=== PATIENT | male | born 1985 | race Caucasian/White ===

== ENCOUNTER 2016-11-05 15:37 | Inpatient (IN) | payer MEDICAID, OTHER ==
[2016-11-05] MEDS ORDERED: ACETAMINOPHEN TAB 325 MG TAB PO PRN (15:56)
[2016-11-05] MEDS ORDERED: MAGNESIUM HYDROXIDE 2,400 MG/10 ML CUP PO PRN (15:56)
[2016-11-05] MEDS ORDERED: MAG HYDROX/AL HYDROX/SIMETH 30 ML CUP PO PRN (15:56)
[2016-11-05] MEDS ORDERED: ZIPRASIDONE 20 MG VIAL IM PRN (15:56)
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
[2016-11-05] MEDS ORDERED: LORazepam 2 MG/ML SYRINGE IM PRN (18:32)
[2016-11-05] MEDS: IBUPROFEN 600 MG TAB PO PRN (19:25)
[2016-11-05] MEDS: LORazepam 1 MG TAB PO PRN (19:27)
[2016-11-05] MEDS ORDERED: NICOTINE 14MG/24HR PATCH TRANSDERM ONE (19:30)
[2016-11-05 19:56] VITALS: RESP 16
[2016-11-05] MEDS: DIVALPROEX ER 500 MG TAB.ER.24H PO SCH (21:28)
[2016-11-05] MEDS: MELATONIN 1 MG TAB PO SCH (21:28)
[2016-11-06] MEDS: LORazepam 1 MG TAB PO PRN (04:46)
[2016-11-06] MEDS ORDERED: NICOTINE 14MG/24HR PATCH TRANSDERM SCH (09:00)
[2016-11-06] MEDS ORDERED: NALTREXONE HCL 50 MG TAB PO SCH (09:00)
[2016-11-06] MEDS: buPROPion XL 300 MG TAB.ER.24H PO SCH ×2 (09:34→09:36)
[2016-11-06] MEDS ORDERED: buPROPion SR 150 MG TABLET.ER PO STA (10:21)
[2016-11-06] MEDS ORDERED: hydrOXYzine PAMOATE 25 MG CAP PO PRN (11:47)
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
[2016-11-06] MEDS: NICOTINE POLACRILEX 2 MG GUM BUCCAL PRN ×3 (12:20→20:20)
[2016-11-06 15:45] LABS: Anisocytosis Slight; Aty Lym Flag Slight; Basophils # (A) 0.1 k/uL (0-0.2); Basophils % (A) 1 %; CH 34.5; CHCM 31.8; Eosinophils # (A) 0.1 k/uL (0-0.7); Eosinophils % (A) 1 %; HCT 40.2 % (39.0-53.0); HDW 2.68; HGB 12.8 gm/dL (13.0-17.5); Luc # (Auto) 0.42; Luc % (Auto) 5; Lymphocytes # (A) 4.9 k/uL (1.0-4.8); Lymphocytes % (A) 57 %; MCH 34.8 pg (25.0-35.0); MCHC 31.8 g/dL (31.0-37.0); MCV 109.4 fL (80.0-100.0); Macrocytosis Marked; Mean Platelet Volume 7.3; Monocytes # (A) 0.6 k/uL (0-1.0); Monocytes % (A) 6 %; Neutrophils # (A) 2.6 k/uL (1.3-7.7); Neutrophils % (A) 30 %; RBC 3.68 m/uL (4.30-5.90); RDW 16.1 % (11.5-15.5); WBC 8.7 k/uL (3.8-10.6); WBC (Perox) 8.42
[2016-11-06] MEDS: buPROPion SR 150 MG TABLET.ER PO SCH (15:55)
[2016-11-06 16:01] LABS: ALT 265 U/L (21-72); AST 231 U/L (17-59); Alkaline Phosphatase 94 U/L (38-126); Anion Gap 10 mmol/L; Blood Urea Nitrogen 17 mg/dL (9-20); Calcium 9.3 mg/dL (8.4-10.2); Carbon Dioxide 27 mmol/L (22-30); Chloride 101 mmol/L (98-107); Glucose 93 mg/dL (74-99); Non-African American GFR(MDRD) >60 (>60 ml/min/1.73 sqM); Potassium 5.9 mmol/L (3.5-5.1); Sodium 138 mmol/L (137-145); Total Bilirubin 0.7 mg/dL (0.2-1.3); Total Protein 8.4 g/dL (6.3-8.2)
[2016-11-06] MEDS ORDERED: INSULIN REGULAR 100 UNIT/ML VIAL IV ONE (16:18)
[2016-11-06] MEDS ORDERED: DEXTROSE 50%-WATER 50 ML SYRINGE IVP STA (16:19)
[2016-11-06 17:03] LABS: Manual Review Performed
--- NOTE | 2016-11-06 19:47 | P.PN ---
Subjective Principal diagnosis: patient is seen and examined per RN request to evaluate abnormal labs, hyperkalemia patient 31 year old with hisotry of hep C, admitted due to auditory and visual hallucinations patient seen today, denies any focal weakness or palpitations, denies any nausea or vomiting. denies any chest pain or trouble breathing continues to request IV opioids to control his right hip pain. however, he is walking around with no limitations, per RN he is not even limping when he thinks that no one is watching him. Objective - Vital Signs Vital signs: Vital Signs Temp 98.2 F 11/06/16 02:35 Pulse 63 11/06/16 04:50 Resp 16 11/06/16 02:35 BP 106/57 11/06/16 04:50 Pulse Ox 98 11/05/16 17:16 - Exam General : not in acute distress, conversant Chest: CTAB, no wheezes, or rhonci, normal breathing effort Cardiac, nl S1 S2 regular no murmurs Abd soft lax, no tenderness, BS positive Ext no leg edema or tenderness to palpation of calf muscles bilaterally Psych alert oriented to place and person and time ;labs reviewed - Labs CBC & Chem 7: 11/06/16 15:23 11/06/16 18:06 Labs: Abnormal Lab Results - Last 24 Hours (Table) 11/06/16 11/06/16 Range/Units 15:23 15:23 RBC 3.68 L (4.30-5.90) m/uL Hgb 12.8 L (13.0-17.5) gm/dL MCV 109.4 H (80.0-100.0) fL RDW 16.1 H (11.5-15.5) % Lymphocytes # 4.9 H (1.0-4.8) k/uL Potassium 5.9 H (3.5-5.1) mmol/L AST 231 H (17-59) U/L ALT 265 H (21-72) U/L Total Protein 8.4 H (6.3-8.2) g/dL Assessment and Plan (1) Hyperkalemia Narrative/Plan: EKG unremarkable repeat levels if continues to increase then will consider transfer to medical floor for further management and monitoring if upon repeat levels normalizes, then continue to monitor on the psych luque Status: Acute (2) Hallucinations, visual Narrative/Plan: Management per psych Status: Acute (3) Auditory hallucinations Narrative/Plan: Management per psych Status: Acute (4) Hep C w/o coma, chronic Narrative/Plan: Check AFP pending elevated transaminitis check PT / INR need OP follow up with PCP and ID Status: Chronic (5) Right hip pain Narrative/Plan: avoid tylenol products due to elevated liver enzymes Consider Motrin or Toradol Status: Chronic (6) Nicotine dependence Narrative/Plan: Counseled to quit smoking Extremities therapy offered Status: Chronic (7) DVT prophylaxis Narrative/Plan: Low risk and ambulatory Status: Acute
[2016-11-06] MEDS: DIVALPROEX ER 500 MG TAB.ER.24H PO SCH (20:19)
[2016-11-06] MEDS ORDERED: OLANZapine 2.5 MG TAB PO SCH (21:00)
[2016-11-07] MEDS: MELATONIN 1 MG TAB PO SCH (01:22)
[2016-11-07] MEDS: NICOTINE POLACRILEX 2 MG GUM BUCCAL PRN ×3 (06:53→14:06)
[2016-11-07] MEDS: IBUPROFEN 600 MG TAB PO PRN (07:22)
[2016-11-07 07:32] VITALS: BP 117/61; PULSE 56; TEMP 97.7
[2016-11-07] MEDS: buPROPion SR 150 MG TABLET.ER PO SCH ×2 (08:15→14:06)
[2016-11-07 11:01] LABS: Anion Gap 8 mmol/L; Blood Urea Nitrogen 19 mg/dL (9-20); Calcium 9.3 mg/dL (8.4-10.2); Carbon Dioxide 28 mmol/L (22-30); Chloride 105 mmol/L (98-107); Glucose 92 mg/dL (74-99); INR 1.2 (<1.2); Non-African American GFR(MDRD) >60 (>60 ml/min/1.73 sqM); Partial Thromboplastin Time 27.6 sec (22.0-30.0); Potassium 4.8 mmol/L (3.5-5.1); Prothrombin Time 12.3 sec (9.0-12.0); Sodium 141 mmol/L (137-145)
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
[2016-11-07 14:04] LABS: Vitamin B12 670 pg/mL (239-931)
[2016-11-07 16:17] LABS: Iron Saturation 60.75 (15.00-50.00)
== END 2016-11-07 13:59 | disposition home or self-care (01) | DRG 885 ==
LOC: 3MHU 16:44
PROVIDERS: ADMIT Psychiatry & Neurology Psychiatry; ATTEND Psychiatry & Neurology Psychiatry
DX: F31.9 Bipolar disorder, unspecified (principal); E87.5 Hyperkalemia; R44.0 Auditory hallucinations; B18.2 Chronic viral hepatitis C; R44.1 Visual hallucinations; R74.0 Nonspecific elevation of levels of transaminase and lactic acid dehydrogenase [LDH]; T50.906A Underdosing of unspecified drugs, medicaments and biological substances, initial encounter; R51 Headache; F12.29 Cannabis dependence with unspecified cannabis-induced disorder; F41.9 Anxiety disorder, unspecified; F19.90 Other psychoactive substance use, unspecified, uncomplicated; F17.200 Nicotine dependence, unspecified, uncomplicated; M25.551 Pain in right hip; Z79.891 Long term (current) use of opiate analgesic; Z79.899 Other long term (current) drug therapy; Z71.6 Tobacco abuse counseling; Z71.41 Alcohol abuse counseling and surveillance of alcoholic; Z71.51 Drug abuse counseling and surveillance of drug abuser; Z91.19 Patient's noncompliance with other medical treatment and regimen; Z91.14 Patient's other noncompliance with medication regimen; Z82.49 Family history of ischemic heart disease and other diseases of the circulatory system; Z90.81 Acquired absence of spleen; Z87.81 Personal history of (healed) traumatic fracture; Z63.79 Other stressful life events affecting family and household; Z62.890 Parent-child estrangement NEC; Z87.828 Personal history of other (healed) physical injury and trauma; Z91.138 Patient's unintentional underdosing of medication regimen for other reason; Z72.89 Other problems related to lifestyle
CPT/HCPCS: 80048; 80053; 80164; 82105; 82607; 82728; 82747; 83540; 83550; 84132; 85025; 85610; 85730; 93005

== ENCOUNTER 2016-11-12 08:38 | Inpatient (IN) | payer MEDICAID ==
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
[2016-11-12] MEDS ORDERED: MAG HYDROX/AL HYDROX/SIMETH 30 ML CUP PO PRN (11:55)
[2016-11-12] MEDS ORDERED: MAGNESIUM HYDROXIDE 2,400 MG/10 ML CUP PO PRN (11:55)
[2016-11-12] MEDS ORDERED: ACETAMINOPHEN TAB 325 MG TAB PO PRN (11:55)
[2016-11-12] MEDS ORDERED: hydrOXYzine PAMOATE 25 MG CAP PO PRN (12:06)
[2016-11-12] MEDS: NICOTINE 14MG/24HR PATCH TRANSDERM SCH (13:15)
[2016-11-12 13:36] VITALS: BMI 24.5
[2016-11-12] MEDS ORDERED: buPROPion SR 150 MG TABLET.ER PO SCH (15:00)
[2016-11-12 15:02] LABS: Appearance,Urine Clear (Clear); Bilirubin,Urine Negative (Negative); Glucose,Urine (UA) Negative (Negative); Ketones,Urine Negative (Negative); Leukocyte Esterase,Urine Negative (Negative); Nitrite,Urine Negative (Negative); PH, Urine 5.5 (5.0-8.0); Protein,Urine Negative (Negative); Specific Gravity,Urine 1.013 (1.001-1.035); UA Billing (MACRO vs. MICRO) CHEM; Urobilinogen,Urine <2.0 mg/dL (<2.0)
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
[2016-11-12] MEDS: IBUPROFEN 200 MG TAB PO SCH (17:13)
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
[2016-11-12] MEDS: SERTRALINE 50 MG TAB PO SCH (18:39)
[2016-11-12] MEDS ORDERED: OLANZapine 2.5 MG TAB PO SCH (21:00)
[2016-11-12] MEDS: FAMOTIDINE 20 MG TAB PO SCH (21:08)
[2016-11-12] MEDS: SULFAMETHOX-TMP 800-160MG 1 EACH TAB PO SCH (21:08)
[2016-11-12] MEDS: DIVALPROEX ER 500 MG TAB.ER.24H PO SCH (21:08)
[2016-11-12] MEDS: ZIPRASIDONE 40 MG CAP PO SCH (21:09)
[2016-11-13] MEDS: NICOTINE 14MG/24HR PATCH TRANSDERM SCH (08:20)
[2016-11-13] MEDS: ZIPRASIDONE 40 MG CAP PO SCH ×2 (08:21→20:11)
[2016-11-13] MEDS: FAMOTIDINE 20 MG TAB PO SCH ×2 (08:21→20:11)
[2016-11-13] MEDS: SERTRALINE 50 MG TAB PO SCH (08:21)
[2016-11-13] MEDS: SULFAMETHOX-TMP 800-160MG 1 EACH TAB PO SCH ×2 (08:21→20:11)
[2016-11-13] MEDS: IBUPROFEN 200 MG TAB PO SCH ×3 (08:21→16:46)
[2016-11-13 09:04] LABS: Hemoglobin A1C 4.5 % (4.2-6.1)
--- NOTE | 2016-11-13 15:35 | PN ---
PROGRESS NOTE DATE OF SERVICE: 11/13/2016. CHIEF COMPLAINT: The patient was admitted due to auditory hallucinations. He heard a whispered conversation. He got very distressed and punched a wall with results of suffering a fracture in his hand. He has been depressed with suicide thoughts. INTERVAL HISTORY: The patient has mostly been isolative. He did attend a group yesterday afternoon and was appropriate though somewhat withdrawn and restless. He has slept in this morning and has not been attending groups today. He has not had problems with a start up of his medication. His Zyprexa and Wellbutrin were discontinued on admission due to some question of side effects. The specifics are not clear. He was started on a combination of Geodon and Zoloft. He has not had change in his general health. He tolerates his psychotropic medications. MENTAL STATUS: Patient gave poor eye contact. Psychomotor activity was slowed. Speech was monotone. He only responded to few questions and mostly was quiet. His affect was flat. Mood reserved. It was difficult to say how distressed he might be feeling. It was difficult to assess questions of thought disorder. ASSESSMENT: I will continue the current diagnosis and treatment plan. I will continue the patient on Geodon 40 mg twice a day and Zoloft 50 mg a day. He is also on Depakote 2000 mg a day. With his Depakote level this morning of 71, it is noted the urine drug screen is positive for opioids, amphetamines and cocaine. We will continue to focus on stabilization and discharge planning. MMADRIEN / ANGELAN: [id number] /
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
[2016-11-13] MEDS: DIVALPROEX ER 500 MG TAB.ER.24H PO SCH (20:11)
[2016-11-14] MEDS: NICOTINE 14MG/24HR PATCH TRANSDERM SCH (08:34)
[2016-11-14] MEDS: SULFAMETHOX-TMP 800-160MG 1 EACH TAB PO SCH ×2 (08:34→21:46)
[2016-11-14] MEDS: IBUPROFEN 200 MG TAB PO SCH ×3 (08:34→17:30)
[2016-11-14] MEDS: ZIPRASIDONE 40 MG CAP PO SCH (08:34)
[2016-11-14] MEDS: SERTRALINE 50 MG TAB PO SCH (08:35)
[2016-11-14] MEDS: FAMOTIDINE 20 MG TAB PO SCH ×2 (08:35→21:46)
[2016-11-14] MEDS ORDERED: diphenhydrAMINE 50 MG CAP PO PRN (10:49)
[2016-11-14] MEDS: buPROPion XL 300 MG TAB.ER.24H PO SCH (11:57)
[2016-11-14 13:18] LABS: ALT 257 U/L (21-72); AST 229 U/L (17-59); Alkaline Phosphatase 103 U/L (38-126); Anion Gap 6 mmol/L; Blood Urea Nitrogen 17 mg/dL (9-20); Calcium 8.8 mg/dL (8.4-10.2); Carbon Dioxide 26 mmol/L (22-30); Chloride 106 mmol/L (98-107); Glucose 79 mg/dL (74-99); Magnesium 1.7 mg/dL (1.6-2.3); Non-African American GFR(MDRD) >60 (>60 ml/min/1.73 sqM); Potassium 5.4 mmol/L (3.5-5.1); Sodium 138 mmol/L (137-145); Total Bilirubin 0.4 mg/dL (0.2-1.3); Total Protein 8.2 g/dL (6.3-8.2)
[2016-11-14 13:48] LABS: Aty Lym Flag Slight; Basophils # (A) 0.1 k/uL (0-0.2); Basophils % (A) 1 %; CH 34.3; CHCM 31.8; Eosinophils # (A) 0.1 k/uL (0-0.7); Eosinophils % (A) 1 %; HCT 38.8 % (39.0-53.0); HDW 2.57; HGB 12.6 gm/dL (13.0-17.5); Luc # (Auto) 0.66; Luc % (Auto) 7; Lymphocytes # (A) 5.2 k/uL (1.0-4.8); Lymphocytes % (A) 52 %; MCH 35.3 pg (25.0-35.0); MCHC 32.5 g/dL (31.0-37.0); MCV 108.7 fL (80.0-100.0); Macrocytosis Marked; Mean Platelet Volume 8.1; Monocytes # (A) 0.8 k/uL (0-1.0); Monocytes % (A) 8 %; Neutrophils # (A) 3.2 k/uL (1.3-7.7); Neutrophils % (A) 32 %; RBC 3.57 m/uL (4.30-5.90); RDW 15.1 % (11.5-15.5); WBC 10.1 k/uL (3.8-10.6)
[2016-11-14 14:07] LABS: Vitamin B12 666 pg/mL (239-931)
[2016-11-14 15:01] LABS: Polychromasia Present
[2016-11-14 15:04] LABS: Manual Review Performed
[2016-11-14] MEDS: DIVALPROEX ER 500 MG TAB.ER.24H PO SCH (21:45)
[2016-11-15] MEDS: buPROPion XL 300 MG TAB.ER.24H PO SCH (08:47)
[2016-11-15] MEDS: SULFAMETHOX-TMP 800-160MG 1 EACH TAB PO SCH ×2 (08:47→21:20)
[2016-11-15] MEDS: FAMOTIDINE 20 MG TAB PO SCH ×2 (08:47→21:20)
[2016-11-15] MEDS: IBUPROFEN 200 MG TAB PO SCH ×3 (08:47→17:16)
[2016-11-15] MEDS: NICOTINE 14MG/24HR PATCH TRANSDERM SCH (08:47)
--- NOTE | 2016-11-15 11:01 | PN ---
PROGRESS NOTE DATE OF SERVICE: 11/14/2016 CHIEF COMPLAINT: The patient was admitted due to auditory hallucinations. He heard a whispered conversation. He became very distressed and punched a wall with the results of suffering fractures in his hand. He has been depressed with suicide thoughts. INTERVAL HISTORY: Patient has been doing fair. He had a quiet evening last night. He slept fair today. He has been up and about. He tends to keep to himself. He has been in bed much of the morning. He did attend one group at noon though has not attended other groups. He continues to be down in his mood. When I reviewed the medications as well as previous treatments, he says Wellbutrin had been the most effective medication for him. He had been started on Zoloft when he was here at the end of October though he apparently did not take it consistently. He was somewhat unclear about his medications though it is noted his Depakote level on this admission was 71. He did not make follow-up appointments that had been scheduled. He says that today the voices are somewhat less. He is uncertain about his living situation when he is discharged, though says he [facility]. He has not had change in his general health. He tolerates his psychotropic medications. MENTAL STATUS: The patient gave fair eye contact. Psychomotor activity was a little restless. Speech was clear. Thoughts were appropriate. Affect somewhat blunted. His mood was quiet. He had a very reserved manner. He seemed anxious. ASSESSMENT: I will continue the current diagnosis and treatment plan. I will start the patient on Wellbutrin, which patient says has been helpful in the past. I will discontinue Zoloft which had been started on admission. He will continue Depakote. We will focus on stabilization and discharge planning. MMODL / IJN: [id number] / ASA
[2016-11-15] MEDS ORDERED: buPROPion XL 150 MG TAB.ER.24H PO STA (14:29)
--- NOTE | 2016-11-15 15:13 | PN ---
PROGRESS NOTE DATE OF SERVICE: 11/15/2016 CHIEF COMPLAINT: The patient was admitted due to auditory hallucinations. He heard a whispered conversation, he became very distressed and punched a wall with results of suffering fracture in his hand. He has been depressed with suicide thoughts. INTERVAL HISTORY: Patient has been doing fair. He had a quiet evening last night. He slept fair today. He has been up and about. He has been making more effort to get to groups. He had an extensive discussion today around struggles he has with poor self-esteem and a lot of self-blame. He says that he has difficulty not seeing himself in a negative light. He says it gets overwhelming to him, then he may turn to drugs as a way of escape for the moment. He recognizes that at his age, he feels like he is starting over his adult life and has no real long-term goals or aspirations. He says his only motivation at this point is that he needs to remain off of drugs as he knows the negative consequences if he does relapse. On the other hand, he has only very vague ideas about things he might do in his life to improve self-esteem and to help him move forward in his life. He has a positive relationship with his son though the son is living in [place] and the patient is not well received by his in-laws, which is a problem. He struggles just with coming up with thoughts about things he would want to do that he could enjoy that would take him away from risks towards relapse. He continues to be quite depressed., On the other hand, voices are quiet. He says that likely the voices came up relating to drugs he had been doing which included his doing crystal meth prior to his past October hospitalization here. He has not had change in his general health. He tolerates his psychotropic medications. MENTAL STATUS: Patient gave fair eye contact. Psychomotor activity was slowed, speech was monotone. He was spontaneous. His affect was anxious. His mood depressed, he was moderately distressed. ASSESSMENT: I will continue the current diagnosis and treatment plan. I will increase Wellbutrin from 300 mg a day up to 450 mg a day. He will continue Depakote. I strongly encouraged the patient to attend groups and to work on some planning in regards to positive outlets that he could develop in his life. If the patient shows progress, we could look at discharge tomorrow. MMCLARENCEL / IJN: [id number] / ASA
[2016-11-15] MEDS: DIVALPROEX ER 500 MG TAB.ER.24H PO SCH (21:20)
[2016-11-15 21:26] VITALS: PULSE 76
[2016-11-16 06:30] VITALS: BP 123/72; RESP 14; TEMP 97.6
[2016-11-16] MEDS: FAMOTIDINE 20 MG TAB PO SCH (08:56)
[2016-11-16] MEDS: NICOTINE 14MG/24HR PATCH TRANSDERM SCH (08:56)
[2016-11-16] MEDS: IBUPROFEN 200 MG TAB PO SCH ×2 (08:56→11:54)
[2016-11-16] MEDS: SULFAMETHOX-TMP 800-160MG 1 EACH TAB PO SCH (08:56)
[2016-11-16] MEDS ORDERED: buPROPion XL 150 MG TAB.ER.24H PO SCH (09:00)
--- NOTE | 2016-11-16 14:14 | DS ---
DISCHARGE SUMMARY DATE OF SERVICE: 11/16/2016. DATE OF ADMISSION: 11/12/2016. DATE OF DISCHARGE: 11/16/2016. ADMISSION AND DISCHARGE DIAGNOSES: 1. Bipolar affective disorder, depressive phase with psychotic features. 2. History of opioid and cocaine use disorders. 3. Generalized anxiety disorder. 4. Posttraumatic stress disorder. 5. Acute thrombophlebitis of left antecubital fossa, possibly from IV drug use. 6. Bilateral swelling of both hands with subacute right 5th metacarpal boxer's fracture. HISTORY OF PRESENT ILLNESS: The patient had been recently discharged from this facility. I refer the reader to admission note and discharge summary of Doctors Estelita and Alexander for admission of 11/05 through 11/07/2016. He was discharged on Wellbutrin SR 150 mg a day, Vistaril 25 mg 3 times a day p.r.n. and Zyprexa 2.5 mg a day. He was also to continue Depakote ER 2000 mg at bedtime. He had previously been on Wellbutrin and naltrexone which were discontinued. He presented to the emergency room for admission due to increasing problems with auditory hallucinations. He was hearing whispering in his head that was very distressing. He ended up punching the wall, which lead to his having a fracture in his right hand and swelling in both hands. He was having increasing problems with anxiety. He indicated that he had not been consistent in taking his medications following discharge. [facility]. He indicated long-term issues with flashbacks to posttraumatic stress disorder. He full had not been sleeping well. He had relapsed to use of opioids and amphetamines. His urine drug screen was positive for opioids, methamphetamine and cocaine. He was admitted for further evaluation. Medical history and physical exam as per Dr. Hughes. MENTAL STATUS EXAM: Patient had organized thought process. His mood was depressed. He denied thoughts of suicide. He acknowledged auditory hallucinations though did not appear to respond to internal stimuli. Cognitive exam was intact. DIAGNOSTIC STUDIES: CBC included a hemoglobin of 12.6, MCV 108.7. Comprehensive metabolic profile was positive for AST 229, ALT 257. Urinalysis negative. Depakote level 71.5. COURSE OF HOSPITALIZATION: The patient was admitted for comprehensive medical, psychiatric and psychosocial evaluation. The patient was restarted on Wellbutrin, which he said had been helping him previously. He was continued on Depakote as his only other psychoactive medications. He initially was started on Zoloft though the patient felt that Wellbutrin had been most helpful medicine to him. He also was started on Geodon though he felt that there were side effects of sedation with Geodon so the medicine was discontinued altogether. Early on in the hospitalization the patient was somewhat withdrawn. He did not interact much with others. He did attend groups. As his hospitalization progressed, he was more engaged in the therapeutic activities. He attended groups and was appropriate. He was able to identify a number of significant long-term emotional issues. He acknowledged that he has poor self-esteem and that he tends to withdrawal in his social function partly because he feels he is a bad person. When he gets into that kind of thinking he often turns to drugs as a way to lift his spirit momentarily. He recognizes that pattern of behavior it is very problematic to him. He was able to talk about the idea that at 31 he feels he is needing to restart his adult life. He was able to develop a plan for discharge. One part of the plan included going to [place] [facility] where he felt there would be extra structure to help him avoid slipping into drug use. He says that he was just beginning to think about some longer-term aspirations that could motivate him to move forward in his life. He was able to talk about the idea that he really did not have any sense of a future which has been one of his biggest down falls. He was able to talk about separation he has from his son who is 9 years old and lives in [place]. He will be making efforts to recontact with his son. As his hospitalization progressed, his mood improved. He developed some fairly good insight about his situation. I refer the reader to my progress notes for November 14 in November 15 for discussion of issues that he was able to address. He understood the importance of getting engaged in therapy. We spent time discussing issues related to managing substance withdrawal issues and what he would need to do to maintain abstinence particularly over the next 3 months. Beyond that, as withdrawal subsides therapy may be helpful for addressing longer-term emotional issues that he struggles with. The patient was cooperative with treatment. CONDITION AT DISCHARGE: The patient was stable. His mood was as was improved. He was motivated for follow up. He tolerated his medications. He engaged in appropriate discharge planning. RECOMMENDATIONS AND FOLLOWUP: Patient is discharged to [facility]. Discharge medications include Depakote ER 2000 mg at bedtime, Zyprexa, Wellbutrin XL 450 mg a day, Pepcid 20 mg twice a day, Advil p.r.n. The patient has a followup appointment with GERRY Berrios on 11/17/2016 at 4:30 p.m. He has a followup appointment on 11/17/[address] L[facility]pez at [facility]. He will also be seen at the [facility] for individual therapy. MMODL / IJN: [id number] /
== END 2016-11-16 13:55 | disposition home or self-care (01) | DRG 753 ==
LOC: EC 08:38 → 3MHU 11:49
PROVIDERS: ADMIT Psychiatry & Neurology Psychiatry; ATTEND Psychiatry & Neurology Psychiatry
DX: F31.5 Bipolar disorder, current episode depressed, severe, with psychotic features (principal); R45.851 Suicidal ideations; I80.8 Phlebitis and thrombophlebitis of other sites; F41.1 Generalized anxiety disorder; F17.200 Nicotine dependence, unspecified, uncomplicated; F43.10 Post-traumatic stress disorder, unspecified; F60.3 Borderline personality disorder; F90.9 Attention-deficit hyperactivity disorder, unspecified type; S62.336D Displaced fracture of neck of fifth metacarpal bone, right hand, subsequent encounter for fracture with routine healing; M79.89 Other specified soft tissue disorders; F11.10 Opioid abuse, uncomplicated; F14.10 Cocaine abuse, uncomplicated; Z79.899 Other long term (current) drug therapy; Z91.5 Personal history of self-harm; Z82.49 Family history of ischemic heart disease and other diseases of the circulatory system; W22.01XD Walked into wall, subsequent encounter
CPT/HCPCS: 80053; 80061; 80164; 80306; 81003; 82075; 82607; 82746; 83036; 83735; 84630; 85025; 99285